=== PATIENT | female | born 1960 | race Caucasian/White ===

== ENCOUNTER 2023-12-09 00:24 | Emergency (ER) | payer OTHER ==
[~2023-12-09] VITALS: Ht 162.6 cm; Wt 99.8 kg
[2023-12-09 00:29] VITALS: BP_SYST 151; PULSE 76; RESP 20; TEMP 97.6; O2SAT 97
[2023-12-09] MEDS ORDERED: NAPR-1172 PO (01:12)
[2023-12-09] MEDS: KETOROLAC TROMETHAMINE 60 MG/2 ML VIAL IM ONE (01:38)
[2023-12-09 01:40] VITALS: BP_SYST 151; PULSE 76; RESP 20; TEMP 97.6; O2SAT 97
[2023-12-10] MEDS ORDERED: CYCL10TA24 PO (01:51)
[2023-12-10] MEDS ORDERED: LIDO1ADH71 TD (02:04)
== END 2023-12-09 01:40 | disposition home or self-care (01) ==
LOC: SED 00:24
DX: M25.512 Pain in left shoulder (principal); Z90.710 Acquired absence of both cervix and uterus; Z79.899 Other long term (current) drug therapy
CPT/HCPCS: 99283; 73030; 96372; J1885

== ENCOUNTER 2023-12-10 00:33 | Emergency (ER) | payer OTHER ==
[~2023-12-10] VITALS: Ht 162.6 cm; Wt 104.3 kg
[~2023-12-10 00:33] MED LIST: NAPR-1172 PO
[2023-12-10 00:53] VITALS: BP_SYST 175; PULSE 76; RESP 18; TEMP 97.2; O2SAT 100
[2023-12-10] MEDS ORDERED: CYCL10TA24 PO (01:51)
[2023-12-10] MEDS: KETOROLAC TROMETHAMINE 30 MG VIAL IM ONE (01:54)
[2023-12-10] MEDS: LIDOCAINE PATCH 5% 1 EA TP ONE (01:55)
[2023-12-10] MEDS ORDERED: ACETAMINOPHEN 500 MG TABLET ONE (01:57)
[2023-12-10] MEDS: ACETAMINOPHEN 500 MG TABLET PO ONE (01:58)
[2023-12-10] MEDS: DIAZEPAM 5 MG TABLET (VALIUM) PO ONE (02:00)
[2023-12-10] MEDS ORDERED: LIDO1ADH71 TD (02:04)
[2023-12-10 02:10] VITALS: BP_SYST 175; PULSE 76; RESP 18; TEMP 97.2; O2SAT 100
== END 2023-12-10 02:10 | disposition home or self-care (01) ==
LOC: SED 00:33
DX: M19.012 Primary osteoarthritis, left shoulder (principal); M25.512 Pain in left shoulder; Z79.899 Other long term (current) drug therapy
CPT/HCPCS: 99284; 96372; J1885